=== PATIENT | female | born 1985 | race Caucasian/White ===

== ENCOUNTER 2017-12-10 17:20 | Emergency (ER) | payer MEDICAID, OTHER ==
[~2017-12-10] VITALS: Ht 162.6 cm; Wt 49.9 kg
[2017-12-10 18:00] VITALS: BP 108/80
[2017-12-10] MEDS ORDERED: ACETAMINOPHEN/CODEINE#3 (300/30mg) TAB PO ONE (19:15)
== END 2017-12-10 19:47 | disposition home or self-care (01) ==
LOC: ER 17:20
DX: I73.00 Raynaud's syndrome without gangrene (principal); M54.9 Dorsalgia, unspecified

== ENCOUNTER 2017-12-25 21:07 | Emergency (ER) | payer MEDICAID ==
[~2017-12-25] VITALS: Ht 162.6 cm; Wt 49.9 kg
[2017-12-25 21:15] VITALS: BP 109/77
[2017-12-25] MEDS ORDERED: KETOROLAC TROMETH 60MG/2ML VIAL IM ONE (22:00)
[2017-12-25 22:21] LABS: Urine Bacteria NONE SEEN /hpf (None Seen); Urine Blood 2+ /uL (Negative); Urine Specific Gravity 1.011 (1.001-1.035); Urine WBC 723 /hpf (0 - 5); Urine WBC Clumps PRESENT /hpf (None Seen)
[2017-12-26] MEDS ORDERED: cefTRIAXone SOD 1,000 MG VL ONE (00:53)
== END 2017-12-26 00:01 | disposition home or self-care (01) ==
LOC: ER 21:07
DX: N39.0 Urinary tract infection, site not specified (principal)
CPT/HCPCS: 74176; 81001; 96372; 99285; J0696; J1885

== ENCOUNTER 2018-01-04 09:56 | Emergency (ER) | payer MEDICAID ==
[~2018-01-04] VITALS: Ht 172.7 cm; Wt 59.0 kg
[2018-01-04 10:49] LABS: Basophils # (auto) 0 uL; Eosinophils # (auto) 0.2 uL; Eosinophils % (auto) 6.5 % (0.0-7.0); Hemoglobin 13.6 g/dL (12.2-16.2); Lymphocytes # (auto) 1.9 uL; Lymphocytes % (auto) 49.8 % (10.0-50.0); Mean Corpuscular Hemoglobin 30.8 pg (28.0-32.0); Mean Corpuscular Volume 93.1 fL (80.0-100.0); Monocytes # (auto) 0.3 uL; Monocytes % (auto) 7.8 % (0.0-12.0); Neutrophils # (auto) 1.3 uL; Neutrophils % (auto) 34.9 % (37.0-80.0); Nucleated Red Blood Cells % 0.2 %; Platelet Count (auto) 225 10^3/uL (140-450); Red Cell Distribution Width 13.1 % (11.8-14.3); White Blood Cell 3.9 10^3/uL (4.4-10.8)
[2018-01-04 10:58] VITALS: BP 111/70
[2018-01-04 11:17] LABS: Anion Gap 6 (5-15); BUN/Creatinine Ratio 14.7; Blood Urea Nitrogen 10 mg/dL (7-18); Carbon Dioxide 29 mmol/L (21-32); Chloride 104 mmol/L (98-107); GFR African American 130 mL/min; Glucose 92 mg/dL (74-106); Sodium 139 mmol/L (136-145)
[2018-01-04 11:18] LABS: Alanine Aminotransferase 31 U/L (13-56); Albumin 3.7 g/dL (3.4-5.0); Alkaline Phosphatase 46 U/L (45-117); Aspartate Aminotransferase 21 U/L (15-37); Bilirubin, Total 0.5 mg/dL (0.2-1.0); Calcium 8.1 mg/dL (8.5-10.1); GFR Non-African American 107 mL/min; Magnesium 2.2 mg/dL (1.6-2.6); Total Protein 6.9 g/dL (6.4-8.2)
[2018-01-04 12:01] LABS: Urine WBC None Seen /hpf (0 - 5)
[2018-01-04 12:16] LABS: Urine Amorphous Crystal FEW /hpf (None Seen); Urine Bacteria FEW /hpf (None Seen); Urine Blood Negative /uL (Negative); Urine Specific Gravity 1.006 (1.001-1.035)
== END 2018-01-04 13:40 | disposition home or self-care (01) ==
LOC: EDBD 09:56 → ER 09:56
DX: R07.89 Other chest pain (principal); R11.2 Nausea with vomiting, unspecified; R06.02 Shortness of breath; F17.210 Nicotine dependence, cigarettes, uncomplicated; R53.1 Weakness; Z87.440 Personal history of urinary (tract) infections; Z88.8 Allergy status to other drugs, medicaments and biological substances
CPT/HCPCS: 36415; 80053; 81001; 81025; 83735; 84484; 85025; 93005; 94761

== ENCOUNTER 2018-03-29 23:20 | Emergency (ER) | payer SELFPAY ==
[~2018-03-29] VITALS: Ht 162.6 cm; Wt 49.9 kg
[2018-03-29 23:30] VITALS: BP 120/85
[2018-03-30 02:04] LABS: Urine Bacteria MOD /hpf (None Seen); Urine Blood Negative /uL (Negative); Urine Mucus FEW (None Seen); Urine Specific Gravity 1.012 (1.001-1.035); Urine WBC 3 /hpf (0 - 5)
== END 2018-03-30 03:07 | disposition home or self-care (01) ==
LOC: ER 23:29
DX: K59.00 Constipation, unspecified (principal); M54.2 Cervicalgia; K21.9 Gastro-esophageal reflux disease without esophagitis; J40 Bronchitis, not specified as acute or chronic; M62.838 Other muscle spasm; F17.210 Nicotine dependence, cigarettes, uncomplicated; F12.10 Cannabis abuse, uncomplicated; F11.10 Opioid abuse, uncomplicated; Z88.8 Allergy status to other drugs, medicaments and biological substances
CPT/HCPCS: 72040; 74022; 81001; 81025

== ENCOUNTER 2020-02-19 14:41 | Emergency (ER) | payer MEDICAID ==
[~2020-02-19] VITALS: Ht 162.6 cm; Wt 49.9 kg
[2020-02-19 14:49] VITALS: BP 144/77
[2020-02-19 15:47] LABS: Basophils # (auto) 0 10 ^3/uL (0-0.2); Basophils % (auto) 0.7 % (0.0-2.0); Eosinophils # (auto) 0.4 10 ^3/uL (0-0.8); Eosinophils % (auto) 7.1 % (0.0-7.0); Hematocrit 44.4 % (36.0-46.0); Hemoglobin 14.6 g/dL (12.2-16.2); Lymphocytes # (auto) 1.1 10 ^3/uL (0.4-5.4); Lymphocytes % (auto) 19.6 % (10.0-50.0); Mean Corpuscular Hemoglobin 30.4 pg (28.0-32.0); Mean Corpuscular Hgb Conc. 32.9 g/dL (32.0-36.0); Mean Corpuscular Volume 92.3 fL (80.0-100.0); Monocytes # (auto) 0.3 10 ^3/uL (0-1.3); Monocytes % (auto) 5.4 % (0.0-12.0); Neutrophils # (auto) 3.9 10 ^3/uL (1.6-8.6); Neutrophils % (auto) 67.2 % (37.0-80.0); Platelet Count (auto) 212 10^3/uL (140-450); Red Blood Cells 4.81 10^6/uL (4.0-5.20); Red Cell Distribution Width 13.6 % (11.8-14.3); White Blood Cell 5.8 10^3/uL (4.4-10.8)
[2020-02-19 16:01] LABS: Albumin 4.1 g/dL (3.4-5.0); Calcium 8.6 mg/dL (8.5-10.1); Potassium 3.7 mmol/L (3.5-5.1)
[2020-02-19 16:14] LABS: BUN/Creatinine Ratio 10.7; Bilirubin, Total 0.4 mg/dL (0.2-1.0); Total Protein 7.7 g/dL (6.4-8.2)
== END 2020-02-19 17:10 | disposition home or self-care (01) ==
LOC: ER 14:41
DX: R07.89 Other chest pain (principal); R20.2 Paresthesia of skin; F17.210 Nicotine dependence, cigarettes, uncomplicated
CPT/HCPCS: 36415; 80053; 84443; 84484; 85025; 93005

== ENCOUNTER 2020-03-03 16:20 | Emergency (ER) | payer MEDICAID ==
[~2020-03-03] VITALS: Ht 162.6 cm; Wt 49.9 kg
[2020-03-03 16:41] VITALS: BP 147/88
[2020-03-03 17:11] LABS: Alcohol, Urine < 3.0 mg/dL (0-10); Amphetamine Screen, Urine NEGATIVE (NEGATIVE); Barbiturate Scree,Urine NEGATIVE (NEGATIVE); Benzodiazephine Screen, Urine NEGATIVE (NEGATIVE); Cannabinoid Screen, Urine POSITIVE (NEGATIVE); Cocaine Screen, Urine NEGATIVE (NEGATIVE); Opiate Scree,Urine NEGATIVE (NEGATIVE); Phencyclidine Screen, Urine NEGATIVE (NEGATIVE)
== END 2020-03-03 17:23 | disposition left against medical advice (07) ==
LOC: ER 16:20
DX: T78.40XA Allergy, unspecified, initial encounter (principal)
CPT/HCPCS: 80307